=== PATIENT | female | born 1970 | race African-American/Black ===

== ENCOUNTER 2017-05-05 19:12 | Emergency (ER) | payer SELFPAY, BC | END 2017-05-06 02:00 | disposition left against medical advice (07) | LOC: E/R 19:12 | DX: Z53.21 Procedure and treatment not carried out due to patient leaving prior to being seen by health care provider (principal) ==

== ENCOUNTER 2018-09-21 19:41 | Observation (INO) | payer BC ==
[2018-09-21 20:55] LABS: ADD MAN DIFF? NO
[2018-09-21 20:59] LABS: BASOPHILS % 0.5 % (0.0-2.0); EOSINOPHILS # 0.2 10^3/ul (0.0-0.5); EOSINOPHILS % 2.1 % (0.0-7.0); HEMATOCRIT 39.9 % (37.0-47.0); HEMOGLOBIN 13.2 g/dl (12.0-16.0); LYMPHOCYTES # 3.5 10^3/ul (0.8-2.9); LYMPHOCYTES % 42.6 % (15.0-51.0); MEAN CORPUSCULAR HEMOGLOBIN 32.4 pg (29.0-33.0); MEAN CORPUSCULAR HGB CONC 33.1 g/dl (32.0-37.0); MEAN PLATELET VOLUME 10.8 fl (7.4-10.4); MONOCYTE # 0.5 10^3/ul (0.3-0.9); MONOCYTES % 6.1 % (0.0-11.0); NEUTROPHILS % 48.5 % (39.0-77.0); PLATELET COUNT 362 10^3/UL (140-415); RED BLOOD COUNT 4.07 10^6/ul (4.20-5.40); RED CELL DISTRIBUTION WIDTH 12.8 % (11.5-14.5)
[2018-09-21 20:59] LABS: WHITE BLOOD COUNT 8.2 10^3/ul (4.8-10.8)
[2018-09-21] MEDS: ONDANSETRON 4 MG INJ IV (21:01)
[2018-09-21] MEDS: NICARDipine HCL 30 MG CAPSULE PO (21:02)
[2018-09-21] MEDS: ASPIRIN 325 MG TAB PO (21:03)
[2018-09-21] MEDS: NITROGLYCERIN 2% 1 GM OINT PKT TD (21:03)
[2018-09-21] MEDS: morphine 4 MG/ML VIAL IV ×2 (21:03)
[2018-09-21 21:13] LABS: ALANINE AMINOTRANSFERASE 24 IU/L (13-69); ALBUMIN 4.6 g/dl (3.3-4.9); ALBUMIN/GLOBULIN RATIO 1.12; ALKALINE PHOSPHATASE 107 IU/L (42-121); ANION GAP 10 (5-13); ASPARTATE AMINO TRANSFERASE 29 IU/L (15-46); BILIRUBIN,INDIRECT 0.3 mg/dl (0-1.1); BILIRUBIN,TOTAL 0.3 mg/dl (0.2-1.3); BLOOD UREA NITROGEN 28 mg/dl (7-20); CALCIUM 10.2 mg/dl (8.4-10.2); CARBON DIOXIDE 25 mmol/L (21-31); CHLORIDE 107 mmol/L (97-110); CREATININE 1.02 mg/dl (0.44-1.00); Estimated GFR > 60 mL/min (>60); GLUCOSE 108 mg/dl (70-220); POTASSIUM 3.7 mmol/L (3.5-5.1); SODIUM 142 mmol/L (135-144); TOTAL PROTEIN 8.7 g/dl (6.1-8.1)
[2018-09-21 21:25] LABS: TROPONIN-I < 0.012 ng/ml (0.000-0.120)
[2018-09-21] MEDS ORDERED: morphine 2 MG INJ IV (22:30)
[2018-09-21] MEDS ORDERED: ONDANSETRON 4 MG INJ IV ×2 (22:30)
[2018-09-21] MEDS ORDERED: NACL 0.9% 3 ML SYG IV (22:30)
[2018-09-21] MEDS ORDERED: ACETAMINOPHEN 325 MG TAB PO (22:30)
[2018-09-21] MEDS ORDERED: NITROGLYCERIN (SL) 0.4 MG TAB SL (22:30)
[2018-09-22] MEDS: ACETAMINOPHEN 325 MG TAB PO ×2 (00:23→10:11)
[2018-09-22] MEDS: AMLODIPINE 5 MG TAB PO (00:23)
[2018-09-22] MEDS: SOD CHLORIDE 0.9% 500 ML IV (00:24)
[2018-09-22 02:32] LABS: CREATINE KINASE 85 IU/L (23-200)
[2018-09-22 02:46] LABS: CK INDEX 0.6; CK-MB 0.47 ng/ml (0.0-2.4); TROPONIN-I < 0.012 ng/ml (0.000-0.120)
[2018-09-22] MEDS: SOD CHLORIDE 0.9% 1,000 ML IV ×2 (07:12→21:00)
[2018-09-22 08:14] LABS: ADD MAN DIFF? NO
[2018-09-22 08:24] LABS: WHITE BLOOD COUNT 5.5 10^3/ul (4.8-10.8)
[2018-09-22 08:24] LABS: BASOPHILS % 0.7 % (0.0-2.0); EOSINOPHILS # 0.1 10^3/ul (0.0-0.5); EOSINOPHILS % 1.6 % (0.0-7.0); HEMATOCRIT 39.2 % (37.0-47.0); HEMOGLOBIN 13.1 g/dl (12.0-16.0); LYMPHOCYTES # 1.8 10^3/ul (0.8-2.9); LYMPHOCYTES % 33.5 % (15.0-51.0); MEAN CORPUSCULAR HEMOGLOBIN 32.8 pg (29.0-33.0); MEAN CORPUSCULAR HGB CONC 33.4 g/dl (32.0-37.0); MEAN PLATELET VOLUME 10.9 fl (7.4-10.4); MONOCYTE # 0.4 10^3/ul (0.3-0.9); MONOCYTES % 7.6 % (0.0-11.0); NEUTROPHIL # 3.1 10^3/ul (1.6-7.5); NEUTROPHILS % 56.2 % (39.0-77.0); PLATELET COUNT 346 10^3/UL (140-415); RED CELL DISTRIBUTION WIDTH 12.8 % (11.5-14.5)
[2018-09-22 08:36] LABS: HEMOGLOBIN A1C 5.5 % (0-5.9)
[2018-09-22 08:41] LABS: ALANINE AMINOTRANSFERASE 31 IU/L (13-69); ALBUMIN 4.5 g/dl (3.3-4.9); ALBUMIN/GLOBULIN RATIO 1.07; ALKALINE PHOSPHATASE 108 IU/L (42-121); ANION GAP 10 (5-13); ASPARTATE AMINO TRANSFERASE 26 IU/L (15-46); BILIRUBIN,INDIRECT 0.4 mg/dl (0-1.1); BILIRUBIN,TOTAL 0.4 mg/dl (0.2-1.3); BLOOD UREA NITROGEN 17 mg/dl (7-20); CALCIUM 9.7 mg/dl (8.4-10.2); CARBON DIOXIDE 23 mmol/L (21-31); CHLORIDE 107 mmol/L (97-110); CHOL/HDL RATIO 4.4 RATIO; CHOLESTEROL 285 mg/dl (100-200); CREATINE KINASE 84 IU/L (23-200); CREATININE 0.78 mg/dl (0.44-1.00); Estimated GFR > 60 mL/min (>60); GLUCOSE 115 mg/dl (70-220); HDL CHOLESTEROL 64 mg/dl (34-88); LDL CHOLESTEROL,CALCULATED 198 mg/dl; MAGNESIUM 2.1 mg/dl (1.7-2.5); POTASSIUM 3.7 mmol/L (3.5-5.1); SODIUM 140 mmol/L (135-144); TOTAL PROTEIN 8.7 g/dl (6.1-8.1); TRIGLYCERIDES 115 mg/dl (0-149)
[2018-09-22] MEDS: LISINOPRIL 20 MG TAB PO (08:43)
[2018-09-22] MEDS: ASPIRIN 81 MG TAB PO (08:43)
[2018-09-22 08:53] LABS: CK INDEX 0.5; TROPONIN-I < 0.012 ng/ml (0.000-0.120)
[2018-09-22] MEDS: PANTOPRAZOLE 40 MG INJ IV (15:32)
[2018-09-22] MEDS: FAMOTIDINE 20 MG TAB PO (15:33)
[2018-09-22 18:37] LABS: LIPASE 110 U/L (23-300)
[2018-09-22 18:37] LABS: AMYLASE 74 U/L (11-123)
[2018-09-23] MEDS: ASPIRIN 81 MG TAB PO (09:00)
[2018-09-23] MEDS: LISINOPRIL 20 MG TAB PO ×2 (09:00→12:49)
[2018-09-23] MEDS ORDERED: HYDROmorphONE 1 MG/5 ML IV SYRINGE IV ×2 (16:00)
[2018-09-23] MEDS ORDERED: hydrALAzine 20 MG INJ IV ×2 (16:00)
[2018-09-23] MEDS ORDERED: LABETALOL HCL 20MG INJ IV ×2 (16:00)
[2018-09-23] MEDS ORDERED: FENTAnyl 50 MCG/ML VIAL IV ×3 (16:00)
[2018-09-23] MEDS ORDERED: ONDANSETRON 4 MG INJ IV ×2 (16:00)
[2018-09-23] MEDS ORDERED: EPHEDrine 25 MG/5 ML SYG IV ×2 (16:00)
[2018-09-23] MEDS ORDERED: METOCLOPRAMIDE 10 MG INJ IV ×2 (16:00)
[2018-09-23] MEDS: PROPOFOL 20 ML ×2 (16:11→16:12)
[2018-09-23] MEDS: IOHEXOL 14.3 MG(I)/ML (ADULT) BTL PO (17:32)
[2018-09-24 04:12] LABS: PROTEIN, TOTAL 8.1 g/dL (6.1-8.1)
[2018-09-25 00:07] LABS: ALBUMIN 4.6 g/dL (3.8-4.8); ALPHA-1-GLOBULINS 0.3 g/dL (0.2-0.3); ALPHA-2-GLOBULINS 0.7 g/dL (0.5-0.9); BETA 2 GLOBULINS 0.5 g/dL (0.2-0.5); BETA GLOBULINS 0.6 g/dL (0.4-0.6); GAMMA GLOBULINS 1.5 g/dL (0.8-1.7)
== END 2018-09-23 21:20 | disposition home or self-care (01) ==
LOC: E/R 19:41 → TEL 22:22
DX: K21.9 Gastro-esophageal reflux disease without esophagitis (principal); K29.50 Unspecified chronic gastritis without bleeding; K31.7 Polyp of stomach and duodenum; I10 Essential (primary) hypertension; E78.00 Pure hypercholesterolemia, unspecified; E78.5 Hyperlipidemia, unspecified; E86.0 Dehydration; N17.9 Acute kidney failure, unspecified
CPT/HCPCS: 36415; 71045; 74176; 76700; 80053; 80061; 82150; 82306; 82550; 82553; 83036; 83690; 83735; 84155; 84165; 84443; 84484; 85025; 88305; 88312; 88313; 93005; 93306; 96374; 99285-25; G0378